=== PATIENT | male | born 1940 | race Two or more races ===

== ENCOUNTER 2017-08-25 13:03 | Outpatient (CLI) | payer OTHER | END 2017-08-25 13:20 | disposition home or self-care (01) | LOC: MRI 13:03 | DX: M25.562 Pain in left knee (principal) | CPT/HCPCS: 73721 ==

== ENCOUNTER 2017-08-25 13:06 | Outpatient (CLI) | payer OTHER | END 2017-08-25 13:22 | disposition home or self-care (01) | LOC: SONOGRAMA 13:06 | DX: M25.561 Pain in right knee (principal) ==

== ENCOUNTER 2017-08-25 13:08 | Outpatient (CLI) | payer OTHER | END 2017-08-25 13:19 | disposition home or self-care (01) | LOC: RAD 13:08 | DX: M25.561 Pain in right knee (principal); M25.562 Pain in left knee ==

== ENCOUNTER 2019-05-13 12:36 | Outpatient (CLI) | payer OTHER | END 2019-05-13 12:38 | disposition home or self-care (01) | LOC: RAD 12:36 | DX: I15.8 Other secondary hypertension (principal); I10 Essential (primary) hypertension ==

== ENCOUNTER 2022-08-13 07:19 | Outpatient (CLI) | payer OTHER | END 2022-08-13 07:20 | disposition home or self-care (01) | LOC: NUCLEAR 07:19 | PROVIDERS: ATTEND Internal Medicine Cardiovascular Disease | DX: I20.9 Angina pectoris, unspecified (principal) ==

== ENCOUNTER → 2022-12-19 | Outpatient (CLI) | payer OTHER | END | disposition home or self-care (01) | LOC: MRI 13:12 | PROVIDERS: ATTEND Psychiatry & Neurology Clinical Neurophysiology | DX: G25.0 Essential tremor (principal); G23.8 Other specified degenerative diseases of basal ganglia | CPT/HCPCS: 70551 ==

== ENCOUNTER 2023-03-17 15:25 | Inpatient (IN) | payer OTHER ==
[~2023-03-17] VITALS: Ht 177.8 cm; Wt 127.0 kg
[2023-03-17] MEDS ORDERED: GABAPENTIN600 MG PO (16:21)
[2023-03-17] MEDS ORDERED: FOLIC ACID1 MG PO (16:21)
[2023-03-17] MEDS ORDERED: TOLTERODINE TART4 MG PO (16:21)
[2023-03-17] MEDS ORDERED: TRADJENTA5 MG PO (16:21)
[2023-03-17] MEDS ORDERED: TAMSULOSIN HCL0.4 MG PO (16:21)
[2023-03-17] MEDS ORDERED: CANDESARTAN CIL32 MG PO (16:22)
[2023-03-17] MEDS ORDERED: VITAMIN D31250 MCG PO (16:22)
[2023-03-17] MEDS ORDERED: FENOFIBRATE160 MG PO (16:22)
[2023-03-17] MEDS ORDERED: METOPROLOL SUCC25 MG PO (16:23)
[2023-03-17] MEDS ORDERED: FINASTERIDE5 MG PO (16:23)
[2023-03-17] MEDS ORDERED: SULINDAC200 MG PO (16:23)
[2023-03-17] MEDS ORDERED: GLIMEPIRIDE4 M1 PO (16:23)
[2023-03-17] MEDS ORDERED: LEVOTHYROXINE150 MCG PO (16:24)
[2023-03-17] MEDS ORDERED: METFORMIN HCL500 M4 PO (16:24)
[2023-03-17 16:47] LABS: ABG PH 7.259 (7.35-7.45); ABG pCO2 62.8 mmHg (35-45); BASE EXCESS -1.1 mmol/l; BICARBONATE 27.5 mmol/l (23-25); SaO2 94.4 %; Tco2 29.4 mmol/l
[2023-03-17 16:48] LABS: allen test SATISFACTORY; o2 28 %; puncture site RADIAL RIGHT
[2023-03-17 17:04] LABS: HEMATOCRIT 37.9 % (39.0-48.0); HEMOGLOBIN 12.6 g/dL (13-16.00); MEAN CELL VOLUME 94.6 fL (80.0-100.00); MEAN CORPUSCULAR HEMOGLOBIN 31.5 pg (27.00-32.0); MEAN CORPUSCULAR HGB CONC 33.3 g/dl (32.0-36.0); PLATELET COUNT 343 K/uL (150-450); RED BLOOD COUNT 4.01 M/uL (4.00-6.00)
[2023-03-17 17:25] LABS: INR 1.16; PARTIAL THROMBOPLASTIN TIME 27.9 SECONDS (22.0-34.0)
[2023-03-17 17:33] LABS: CALCIUM 8.5 mg/dL (8.5-10.1); CREATININE SERUM 3.19 mg/dL (0.70-1.30); GFR 18.71; POTASSIUM 5.53 mEq/L (3.5-5.1)
[2023-03-17 18:44] LABS: URINE APPEARANCE Clear; URINE BILIRRUBIN Small (NEGATIVE); URINE BLOOD Negative; URINE COLOR Dark Yellow; URINE LEUKOCYTE Negative; URINE NITRATE Negative; URINE PROTEIN Trace (NEGATIVE)
[2023-03-17 18:47] LABS: URINE BACTERIA 72.5 uL (0.0-1933); URINE EPITHELIAL CELLS 10.6 uL (0.0-38.8); URINE RBC 4.5 uL (0.0-20.8); URINE WBC 15.3 uL (0.0-23.2)
[2023-03-17 18:57] LABS: URINE GLUCOSE 100 MG/DL (NEGATIVE)
[2023-03-17 19:00] LABS: ABG PH 7.303 (7.35-7.45); ABG PO2 62.9 mmHg (80-100); ABG pCO2 55.1 mmHg (35-45); BASE EXCESS -0.7 mmol/l; BICARBONATE 26.7 mmol/l (23-25); Tco2 28.4 mmol/l; puncture site RADIAL LEFT
[2023-03-17 19:01] LABS: o2 35 %
[2023-03-17 20:14] LABS: CHOL HDL RATIO 2.9 (0-5.0); CKMB 2.2 NG/ML (0.5-3.6); MAGNESIUM 2.3 mg/dL (1.8-2.4)
[2023-03-17 20:19] LABS: C-REACTIVE PROTEIN 0.36 MG/DL (0.00-0.29)
[2023-03-18 06:19] LABS: HEMATOCRIT 41.1 % (39.0-48.0); HEMOGLOBIN 13.4 g/dL (13-16.00); MEAN CELL VOLUME 96.1 fL (80.0-100.00); MEAN CORPUSCULAR HEMOGLOBIN 31.3 pg (27.00-32.0); MEAN CORPUSCULAR HGB CONC 32.6 g/dl (32.0-36.0); PLATELET COUNT 374 K/uL (150-450); RED BLOOD COUNT 4.27 M/uL (4.00-6.00); RED CELL DISTRIBUTION WIDTH 14.7 % (11.5-14.5)
[2023-03-18 06:49] LABS: ALBUMIN 2.9 gm/dL (3.4-5.0); BILIRUBIN TOTAL 1.3 mg/dL (0.3-1.2); CALCIUM 8.8 mg/dL (8.5-10.1); CREATININE SERUM 2.93 mg/dL (0.70-1.30); GFR 20.64; GLOBULINA 3.7 G/DL (2.4-3.5); POTASSIUM 5.37 mEq/L (3.5-5.1); TOTAL PROTEIN 6.6 gm/dL (6.4-8.2); TSH 1.28 uIU/mL (0.358-3.74)
[2023-03-18 07:19] LABS: ABG PH 7.405 (7.35-7.45)
[2023-03-18 07:20] LABS: ABG PO2 73.1 mmHg (80-100); BASE EXCESS -3.4 mmol/l; BICARBONATE 20.4 mmol/l (23-25); SaO2 94.4 %; Tco2 21.4 mmol/l; allen test SATISFACTORY; o2 35 %; puncture site RADIAL RIGHT
[2023-03-18 10:31] LABS: allen test SATISFACTORY
[2023-03-19 06:57] LABS: HEMATOCRIT 40.1 % (39.0-48.0); HEMOGLOBIN 13.3 g/dL (13-16.00); MEAN CELL VOLUME 95.1 fL (80.0-100.00); MEAN CORPUSCULAR HEMOGLOBIN 31.5 pg (27.00-32.0); MEAN CORPUSCULAR HGB CONC 33.1 g/dl (32.0-36.0); PLATELET COUNT 418 K/uL (150-450); RED BLOOD COUNT 4.22 M/uL (4.00-6.00); RED CELL DISTRIBUTION WIDTH 15.4 % (11.5-14.5)
[2023-03-19 07:09] LABS: ALBUMIN 3.3 gm/dL (3.4-5.0); CREATININE SERUM 2.92 mg/dL (0.70-1.30); GFR 20.72; PHOSPHOROUS 5.1 mg/dL (2.5-4.9)
[2023-03-19 08:55] LABS: POTASSIUM 6.36 mEq/L (3.5-5.1)
[2023-03-19 14:03] LABS: ABG PH 7.225 (7.35-7.45); ABG PO2 71.8 mmHg (80-100); BASE EXCESS -3.3 mmol/l; BICARBONATE 25.8 mmol/l (23-25); Tco2 27.8 mmol/l; o2 50 %
[2023-03-19 14:04] LABS: ABG pCO2 63.8 mmHg (35-45); allen test SATISFACTORY; puncture site RADIAL RIGHT
[2023-03-19 16:57] LABS: ABG PH 7.277 (7.35-7.45); ABG PO2 81.3 mmHg (80-100); ABG pCO2 50.6 mmHg (35-45); BASE EXCESS -4.2 mmol/l; BICARBONATE 23.1 mmol/l (23-25); SaO2 93.8 %; Tco2 24.6 mmol/l
[2023-03-19 16:59] LABS: allen test SATISFACTORY; o2 50 %; puncture site RADIAL RIGHT
[2023-03-20 06:54] LABS: HEMATOCRIT 39.7 % (39.0-48.0); HEMOGLOBIN 13.2 g/dL (13-16.00); MEAN CORPUSCULAR HEMOGLOBIN 31.5 pg (27.00-32.0); MEAN CORPUSCULAR HGB CONC 33.2 g/dl (32.0-36.0); PLATELET COUNT 369 K/uL (150-450); RED BLOOD COUNT 4.18 M/uL (4.00-6.00); RED CELL DISTRIBUTION WIDTH 14.9 % (11.5-14.5)
[2023-03-20 07:20] LABS: ALBUMIN 3.3 gm/dL (3.4-5.0); BILIRUBIN TOTAL 0.9 mg/dL (0.3-1.2); CALCIUM 8.5 mg/dL (8.5-10.1); CREATININE SERUM 3.04 mg/dL (0.70-1.30); GFR 19.78; GLOBULINA 3.4 G/DL (2.4-3.5); POTASSIUM 5.84 mEq/L (3.5-5.1); TOTAL PROTEIN 6.7 gm/dL (6.4-8.2)
[2023-03-20 08:48] LABS: ABG PH 7.332 (7.35-7.45); ABG PO2 86.5 mmHg (80-100); ABG pCO2 44.5 mmHg (35-45); SaO2 95.6 %; Tco2 24.4 mmol/l
[2023-03-20 08:49] LABS: allen test SATISFACTORY; o2 50 %; puncture site RADIAL RIGHT
[2023-03-20 20:25] LABS: TP PLEURAL FLUID 2.8 g/dl
[2023-03-20 20:29] LABS: PLEURAL FLUID APPEARANCE HAZY; PLEURAL FLUID COLOR YELLOW
[2023-03-20 20:42] LABS: POLYMORPHONUCLEAR 5 %
[2023-03-20 20:43] LABS: MONONUCLEAR 95 %
[2023-03-21 07:22] LABS: HEMATOCRIT 38.2 % (39.0-48.0); HEMOGLOBIN 12.7 g/dL (13-16.00); MEAN CELL VOLUME 94.3 fL (80.0-100.00); MEAN CORPUSCULAR HEMOGLOBIN 31.4 pg (27.00-32.0); MEAN CORPUSCULAR HGB CONC 33.2 g/dl (32.0-36.0); PLATELET COUNT 328 K/uL (150-450); RED BLOOD COUNT 4.05 M/uL (4.00-6.00); RED CELL DISTRIBUTION WIDTH 15.5 % (11.5-14.5)
[2023-03-21 08:09] LABS: ALBUMIN 3.1 gm/dL (3.4-5.0); CALCIUM 8.4 mg/dL (8.5-10.1); CREATININE SERUM 2.87 mg/dL (0.70-1.30); GFR 21.14; PHOSPHOROUS 5.3 mg/dL (2.5-4.9); POTASSIUM 4.88 mEq/L (3.5-5.1)
[2023-03-21 10:53] LABS: ABG PH 7.331 (7.35-7.45); ABG PO2 111.2 mmHg (80-100); ABG pCO2 43.6 mmHg (35-45); BASE EXCESS -3.4 mmol/l; BICARBONATE 22.5 mmol/l (23-25); SaO2 97.8 %; Tco2 23.9 mmol/l
[2023-03-21 10:54] LABS: allen test SATISFACTORY; o2 50 %; puncture site RADIAL RIGHT
[2023-03-22 07:39] LABS: CALCIUM 8.4 mg/dL (8.5-10.1); CREATININE SERUM 2.56 mg/dL (0.70-1.30); GFR 24.12; POTASSIUM 4.7 mEq/L (3.5-5.1)
[2023-03-23 06:13] LABS: CALCIUM 8.4 mg/dL (8.5-10.1); CREATININE SERUM 2.63 mg/dL (0.70-1.30); GFR 23.38; POTASSIUM 4.65 mEq/L (3.5-5.1)
[2023-03-23 06:29] LABS: ALBUMIN 2.8 gm/dL (3.4-5.0); BILIRUBIN TOTAL 0.57 mg/dL (0.3-1.2); TOTAL PROTEIN 5.8 gm/dL (6.4-8.2)
[2023-03-24 12:56] LABS: ABG PH 7.251 (7.35-7.45); ABG PO2 73.8 mmHg (80-100); ABG pCO2 56.4 mmHg (35-45); BASE EXCESS -3.9 mmol/l; BICARBONATE 24.2 mmol/l (23-25); SaO2 91.3 %
[2023-03-24 12:57] LABS: allen test SATISFACTORY; o2 40 %; puncture site RADIAL RIGHT
[2023-03-27 17:48] LABS: ABG PH 7.239 (7.35-7.45); BASE EXCESS -3.5 mmol/l; SaO2 96.9 %
[2023-03-27 17:49] LABS: BICARBONATE 25.1 mmol/l (23-25); Tco2 26.9 mmol/l; allen test SATISFACTORY; o2 100 %; puncture site RADIAL LEFT
[2023-03-27 17:51] LABS: ABG PO2 108.4 mmHg (80-100)
[2023-03-27 23:27] LABS: HEMATOCRIT 39.5 % (39.0-48.0); HEMOGLOBIN 12.9 g/dL (13-16.00); MEAN CORPUSCULAR HEMOGLOBIN 30.9 pg (27.00-32.0); MEAN CORPUSCULAR HGB CONC 32.5 g/dl (32.0-36.0); PLATELET COUNT 171 K/uL (150-450); RED BLOOD COUNT 4.16 M/uL (4.00-6.00); RED CELL DISTRIBUTION WIDTH 15.6 % (11.5-14.5)
[2023-03-27 23:49] LABS: ALBUMIN 2.7 gm/dL (3.4-5.0); BILIRUBIN TOTAL 0.39 mg/dL (0.3-1.2); CALCIUM 8.4 mg/dL (8.5-10.1); CREATININE SERUM 3.57 mg/dL (0.70-1.30); GFR 16.43; GLOBULINA 2.6 G/DL (2.4-3.5); POTASSIUM 5.15 mEq/L (3.5-5.1); TOTAL PROTEIN 5.3 gm/dL (6.4-8.2)
[2023-03-28 13:17] LABS: ABG PH 7.245 (7.35-7.45); ABG PO2 68.3 mmHg (80-100); BASE EXCESS -2.9 mmol/l; BICARBONATE 25.6 mmol/l (23-25); SaO2 89.3 %; Tco2 27.5 mmol/l
[2023-03-28 13:33] LABS: ABG pCO2 60.5 mmHg (35-45); allen test SATISFACTORY; o2 40 %; puncture site RADIAL LEFT
[2023-03-30 12:03] LABS: ABG PO2 64.2 mmHg (80-100); ABG pCO2 44.5 mmHg (35-45); BASE EXCESS -2.5 mmol/l; BICARBONATE 23.4 mmol/l (23-25); SaO2 90.5 %; Tco2 24.8 mmol/l
[2023-03-30 12:08] LABS: o2 36 %
[2023-03-30 12:09] LABS: allen test SATISFACTORY; puncture site RADIAL LEFT
[2023-03-31 07:24] LABS: ALBUMIN 2.9 gm/dL (3.4-5.0); BILIRUBIN TOTAL 0.64 mg/dL (0.3-1.2); CALCIUM 9.1 mg/dL (8.5-10.1); CREATININE SERUM 2.88 mg/dL (0.70-1.30); GFR 21.05; POTASSIUM 5.48 mEq/L (3.5-5.1); TOTAL PROTEIN 5.9 gm/dL (6.4-8.2)
== END 2023-04-02 14:31 | disposition home or self-care (01) | DRG 981 ==
LOC: ER 15:25 → ICU-2 18:53 → ICU 03-19 06:45 → MEDI 03-26 17:48
PROVIDERS: Emergency Medicine; General Practice; Internal Medicine; Internal Medicine Critical Care Medicine; Internal Medicine Nephrology; Radiology Vascular & Interventional Radiology; ADMIT Internal Medicine; ATTEND Internal Medicine
PROC: BW24ZZZ Computerized Tomography (CT Scan) of Chest and Abdomen (ICD-10-PCS; 2023-03-17)
PROC: B24BZZZ Ultrasonography of Heart with Aorta (ICD-10-PCS; 2023-03-17)
PROC: 5A09557 Assistance with Respiratory Ventilation, Greater than 96 Consecutive Hours, Continuous Positive Airway Pressure (ICD-10-PCS; 2023-03-17)
PROC: 02HV33Z Insertion of Infusion Device into Superior Vena Cava, Percutaneous Approach (ICD-10-PCS; 2023-03-19)
PROC: 0W993ZX Drainage of Right Pleural Cavity, Percutaneous Approach, Diagnostic (ICD-10-PCS; principal; 2023-03-20)
PROC: 4A12X4Z Monitoring of Cardiac Electrical Activity, External Approach (ICD-10-PCS; 2023-03-26)
PROC: 0JD00ZZ Extraction of Scalp Subcutaneous Tissue and Fascia, Open Approach (ICD-10-PCS; 2023-04-02)
DX: J96.02 Acute respiratory failure with hypercapnia (principal); I50.23 Acute on chronic systolic (congestive) heart failure; J18.9 Pneumonia, unspecified organism; N17.9 Acute kidney failure, unspecified; J44.1 Chronic obstructive pulmonary disease with (acute) exacerbation; I13.0 Hypertensive heart and chronic kidney disease with heart failure and stage 1 through stage 4 chronic kidney disease, or unspecified chronic kidney disease; J96.01 Acute respiratory failure with hypoxia; E87.5 Hyperkalemia; L89.819 Pressure ulcer of head, unspecified stage; E66.01 Morbid (severe) obesity due to excess calories; Z79.4 Long term (current) use of insulin; G47.33 Obstructive sleep apnea (adult) (pediatric); N18.9 Chronic kidney disease, unspecified; E11.22 Type 2 diabetes mellitus with diabetic chronic kidney disease; I25.10 Atherosclerotic heart disease of native coronary artery without angina pectoris; I48.91 Unspecified atrial fibrillation; Z20.822 Contact with and (suspected) exposure to COVID-19; F17.200 Nicotine dependence, unspecified, uncomplicated